=== PATIENT | male | born 1985 | race Caucasian/White ===

== ENCOUNTER 2023-06-21 21:02 | Emergency (ER) | payer MEDICAID, SELFPAY ==
[2023-06-21 21:35] VITALS: BP 129/73; PULSE 78; RESP 18; TEMP 37.1; O2SAT 95; BMI 33.7
[2023-06-21 22:16] LABS: Basophils Absolute Auto 0.1 10^3/uL (0.0-0.1); Basophils Percent Auto 0.7 % (0.2-2.0); Eosinophils Absolute Auto 0.4 10^3/uL (0.0-0.7); Eosinophils Percent Auto 5.1 % (0.9-7.0); Hematocrit 37.5 % (42.0-54.0); Hemoglobin 12.2 g/dL (14.0-18.0); Immature Granulocytes Abs Auto 0.05 10^3/uL (0.00-0.03); Immature Granulocytes Pct Auto 0.7 % (0.0-0.5); Lymphocytes Absolute Auto 2.2 10^3/uL (1.2-3.8); Lymphocytes Percent Auto 30.9 % (20.5-60.0); Mean Corpuscular HGB Conc 32.5 g/dL (29.9-35.2); Mean Corpuscular Hemoglobin 28.2 pg (25.9-34.0); Mean Corpuscular Volume 86.6 fL (80.0-94.0); Mean Platelet Volume 9.8 fL (9.5-13.5); Monocytes Absolute Auto 0.6 10^3/uL (0.3-0.8); Monocytes Percent Auto 8.9 % (1.7-12.0); Neutrophils Absolute Auto 3.9 10^3/uL (1.4-6.5); Neutrophils Percent Auto 53.7 % (43.0-75.0); Platelet Count 197 10^3/uL (150-450); Red Blood Count 4.33 10^6/uL (4.70-6.10); Red Cell Distribution Width 15.1 % (11.0-15.0); White Blood Count 7.2 10^3/uL (4.0-11.0)
[2023-06-21 22:32] LABS: Partial Thromboplastin Time 25.5 sec (22.3-36.2)
[2023-06-21 22:39] LABS: Alanine Aminotransferase 71 U/L (16-63); Albumin Globulin Ratio 0.9; Albumin Level 3.4 g/dL (3.4-5.0); Alkaline Phosphatase 84 U/L (46-116); Anion Gap 10.9; Aspartate Amino Transferase 36 U/L (15-37); BUN Creatinine Ratio 19.8; Bilirubin Total 0.3 mg/dL (0.2-1.0); Calcium 9.3 mg/dL (8.5-10.1); Carbon Dioxide 31.3 mmol/L (21.0-32.0); Chloride 103 mmol/L (98-107); Estimated GFR (African America >60 (>=60); Estimated GFR (Non-African Ame >60 (>=60); Glucose 131 mg/dL (74-106); Potassium 4.2 mmol/L (3.5-5.1); Sodium 141 mmol/L (136-145); Total Protein 7.4 g/dL (6.4-8.2)
[2023-06-21 22:43] LABS: INR 0.95; Prothrombin Time 10.1 sec (9.0-11.6)
--- NOTE | 2023-06-21 23:19 | ED.GIBLEED1 ---
HPI - GI Bleed General Chief complaint: Recheck/Abnormal Lab/Rx Stated complaint: Blood in Stool Time Seen by Provider: 06/21/23 21:20 Mode of arrival: walk-in Limitations: no limitations History of Present Illness HPI Narrative: tonight the patient saw bright red blood on the tissue and in the toilet after BM. He denied straining to go. However, earlier today he had an episode of nausea and generalized abdominal pain that self resolved. No prior history or crohn's or UC. He had hemorrhoids in the past. No abdominal pain or nausea at this time. No chest pain or shortness of breath. No dizziness. Related Data Home Medications Medication Instructions Recorded Confirmed buprenorphine 300 mg/1.5 mL 300 mg subcut .monthly 06/21/23 06/21/23 solution,exten.rel.subcutaneous syringe (Sublocade) buspirone 7.5 mg tablet 7.5 mg PO TID 06/21/23 06/21/23 dicyclomine 10 mg capsule 10 mg PO BID PRN abdominal pain 06/21/23 06/21/23 hydroxyzine pamoate 25 mg capsule 25 mg PO Q6H PRN anxiety 06/21/23 06/21/23 levothyroxine 150 mcg tablet 150 mcg PO DAILY 06/21/23 06/21/23 lidocaine HCl 2 % mucosal solution 1 applic PO Q12H PRN mouth pain 06/21/23 06/21/23 (Lidocaine Viscous) mirtazapine 7.5 mg tablet 7.5 mg PO DAILY 06/21/23 06/21/23 naloxone 4 mg/actuation nasal spray intranasal 06/21/23 omeprazole 20 mg capsule,delayed 20 mg PO DAILY 06/21/23 06/21/23 release ondansetron 8 mg disintegrating 8 mg PO Q8H PRN nausea and vomiting 06/21/23 06/21/23 tablet ropinirole 0.5 mg tablet 0.5 mg PO DAILY PRN restless legs 06/21/23 06/21/23 Allergies Allergy/AdvReac Type Severity Reaction Status Date / Time vancomycin Allergy Hives Verified 06/21/23 21:28 PFSH PFS Social History Smoking status: Current every day smoker Exam Narrative Exam Narrative: Nurses notes and vital signs reviewed and patient is not hypoxic. afebrile General: Well-appearing and in no apparent distress. Skin: Warm, dry, no pallor noted. No rash. Eye: Pupils are equal, round and EOMI. No scleral icterus. Ears, Nose, Mouth, and Throat: TM are clear, no posterior oropharynx erythema or nasal mucosal hypertrophy, uvula is mid-line Oral mucosa is moist Cardiovascular: Regular Rate and Rhythm without murmur, gallop or rub. Respiratory: No accessory muscle use or respiratory distress. Lungs are clear to auscultation, no wheezing, rales or rhonchi Musculoskeletal: normal ROM GI: Abdomen is soft, non-distended. Normal bowel sounds. No masses appreciated. No tenderness to palpation. No rebound, guarding, or rigidity noted. Rectal: No external hemorrhoids appreciated. no anal fissure or active bleeding noted. Neurological: A&O x4. No cranial nerve dysfunction observed. No truncal ataxia. Moves all extremities. Sensation intact. Psychiatric: Cooperative and interactive. Normal mood and affect. Constitutional Vital Signs, click to edit/add: Last Vital Signs Temp 98.7 F 06/21/23 21:35 Pulse 78 06/21/23 21:35 Resp 18 06/21/23 21:35 BP 129/73 06/21/23 21:35 Pulse Ox 95 06/21/23 21:35 O2 Del Method Room Air 06/21/23 21:35 Course Vital Signs Vital signs: Vital Signs Temperature 98.7 F 06/21/23 21:35 Pulse Rate 78 06/21/23 21:35 Respiratory Rate 18 06/21/23 21:35 Blood Pressure 129/73 06/21/23 21:35 Pulse Oximetry 95 06/21/23 21:35 Oxygen Delivery Method Room Air 06/21/23 21:35 Temperature 98.7 F 06/21/23 21:35 Pulse Rate 78 06/21/23 21:35 Respiratory Rate 18 06/21/23 21:35 Blood Pressure 129/73 06/21/23 21:35 Pulse Oximetry 95 06/21/23 21:35 Oxygen Delivery Method Room Air 06/21/23 21:35 MDM - GI Bleed MDM Narrative Medical decision making narrative: Unremarkable blood testing. The patient was informed of negative results and given reassurance. He will be discharged back to [facility] where he is currently residing as part of detox from polysubstance abuse. Discussed reasons to return to the ED - syncope, return of abdominal pain, increased rectal bleeding. He was referred to General surgery for follow up. Lab Data Attestation: I reviewed the patient's lab results. Labs: Lab Results 06/21/23 Range/Units 22:00 WBC 7.2 (4.0-11.0) 10^3/uL RBC 4.33 L (4.70-6.10) 10^6/uL Hgb 12.2 L (14.0-18.0) g/dL Hct 37.5 L (42.0-54.0) % MCV 86.6 (80.0-94.0) fL MCH 28.2 (25.9-34.0) pg MCHC 32.5 (29.9-35.2) g/dL RDW 15.1 H (11.0-15.0) % Plt Count 197 (150-450) 10^3/uL MPV 9.8 (9.5-13.5) fL Neut % (Auto) 53.7 (43.0-75.0) % Lymph % (Auto) 30.9 (20.5-60.0) % [place] % (Auto) 8.9 (1.7-12.0) % Eos % (Auto) 5.1 (0.9-7.0) % Baso % (Auto) 0.7 (0.2-2.0) % Neut # (Auto) 3.9 (1.4-6.5) 10^3/uL Lymph # (Auto) 2.2 (1.2-3.8) 10^3/uL [place] # (Auto) 0.6 (0.3-0.8) 10^3/uL Eos # (Auto) 0.4 (0.0-0.7) 10^3/uL Baso # (Auto) 0.1 (0.0-0.1) 10^3/uL Abs Immat Gran (auto) 0.05 H (0.00-0.03) 10^3/uL Imm/Tot Granulo (auto) 0.7 H (0.0-0.5) % PT 10.1 (9.0-11.6) sec INR 0.95 APTT 25.5 (22.3-36.2) sec Sodium 141 (136-145) mmol/L Potassium 4.2 (3.5-5.1) mmol/L Chloride 103 (98-107) mmol/L Carbon Dioxide 31.3 (21.0-32.0) mmol/L Anion Gap 10.9 BUN 16.0 (7.0-18.0) mg/dL Creatinine 0.81 (0.70-1.30) mg/dL Est GFR ( Amer) >60 (>=60) Est GFR (Non-Af Amer) >60 (>=60) BUN/Creatinine Ratio 19.8 Glucose 131 H (74-106) mg/dL Calcium 9.3 (8.5-10.1) mg/dL Total Bilirubin 0.3 (0.2-1.0) mg/dL AST 36 (15-37) U/L ALT 71 H (16-63) U/L Alkaline Phosphatase 84 (46-116) U/L Total Protein 7.4 (6.4-8.2) g/dL Albumin 3.4 (3.4-5.0) g/dL Globulin 4.0 g/dL Albumin/Globulin Ratio 0.9 Discharge Plan Discharge Chief Complaint: Recheck/Abnormal Lab/Rx Clinical Impression: Bright red rectal bleeding Time of Disposition Decision: 23:23 Prescriptions / Home Meds: No Action Sublocade 300 mg/1.5 mL solution, extended rel syringe 300 mg SUBCUT .monthly buspirone 7.5 mg tablet 7.5 mg PO TID dicyclomine 10 mg capsule 10 mg PO BID PRN (Reason: abdominal pain) hydroxyzine pamoate 25 mg capsule 25 mg PO Q6H PRN (Reason: anxiety) levothyroxine 150 mcg tablet 150 mcg PO DAILY lidocaine HCl [Lidocaine Viscous] 2 % solution 1 applic PO Q12H PRN (Reason: mouth pain) mirtazapine 7.5 mg tablet 7.5 mg PO DAILY omeprazole 20 mg capsule,delayed release(DR/EC) 20 mg PO DAILY ondansetron 8 mg tablet,disintegrating 8 mg PO Q8H PRN (Reason: nausea and vomiting) ropinirole 0.5 mg tablet 0.5 mg PO DAILY PRN (Reason: restless legs) naloxone 4 mg/actuation spray,non-aerosol INTRANASAL Instructions: Rectal Bleeding (ED) Stand Alone Forms: Portal Instructions Referrals: Physician,Non-Staff, MD [Primary Care Provider] - 1 week Lb Lee MD [Physician] - As soon as possible
[2023-06-21 23:51] VITALS: BP 119/63; PULSE 75; O2SAT 95
== END 2023-06-22 00:23 | disposition home or self-care (01) ==
PROVIDERS: Emergency Provider Emergency Medicine
DX: K62.5 Hemorrhage of anus and rectum (principal); F17.210 Nicotine dependence, cigarettes, uncomplicated; F19.10 Other psychoactive substance abuse, uncomplicated; Z79.899 Other long term (current) drug therapy; Z79.890 Hormone replacement therapy
CPT/HCPCS: 36415; 80053; 85025; 85610; 85730; 99283; G0328